=== PATIENT | female | born 1945 | race Caucasian/White ===

== ENCOUNTER 2016-10-25 11:22 | Emergency (ER) | payer MEDICARE ==
[2016-10-25] MEDS ORDERED: SODIUM CHLORIDE 0.9% 1,000 ML IV ONE (12:05)
[2016-10-25 12:45] LABS: Basophils % (A) 0 %; CH 33.3; CHCM 33.3; Eosinophils # (A) 0.1 k/uL (0-0.7); Eosinophils % (A) 3 %; HCT 40.3 % (34.0-46.0); HGB 13.2 gm/dL (11.4-16.0); Luc # (Auto) 0.06; Luc % (Auto) 1; Lymphocytes # (A) 1.4 k/uL (1.0-4.8); Lymphocytes % (A) 27 %; MCH 32.8 pg (25.0-35.0); MCHC 32.7 g/dL (31.0-37.0); MCV 100.4 fL (80.0-100.0); Macrocytosis Slight; Mean Platelet Volume 8.7; Monocytes # (A) 0.3 k/uL (0-1.0); Monocytes % (A) 6 %; Neutrophils # (A) 3.2 k/uL (1.3-7.7); Neutrophils % (A) 63 %; RBC 4.02 m/uL (3.80-5.40); RDW 14.4 % (11.5-15.5); WBC 5.1 k/uL (3.8-10.6); WBC (Perox) 4.73
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
[2016-10-25 13:33] LABS: ALT 38 U/L (9-52); AST 22 U/L (14-36); Alkaline Phosphatase 82 U/L (38-126); Anion Gap 6 mmol/L; Blood Urea Nitrogen 15 mg/dL (7-17); Calcium 8.9 mg/dL (8.4-10.2); Carbon Dioxide 28 mmol/L (22-30); Chloride 105 mmol/L (98-107); Glucose 81 mg/dL (74-99); Non-African American GFR(MDRD) >60 (>60 ml/min/1.73 sqM); Potassium 4.3 mmol/L (3.5-5.1); Sodium 139 mmol/L (137-145); Total Bilirubin 0.4 mg/dL (0.2-1.3); Total Protein 6.2 g/dL (6.3-8.2)
--- NOTE | 2016-10-25 14:02 | US ---
EXAMINATION TYPE: US venous doppler duplex LE DATE OF EXAM: 10/25/2016 1:42 PM COMPARISON: NONE CLINICAL HISTORY: Pain. Went to [employer] 10/11. Four days after, pain in heel began then swelling in bot h legs. No hx of blood clots or on blood thinners SIDE PERFORMED: bilateral TECHNIQUE: The lower extremity deep venous system is examined utilizing real time linear array sonog rach with graded compression, doppler sonography and color-flow sonography. VESSELS IMAGED: External Iliac Vein (EIV) Common Femoral Vein Deep Femoral Vein Greater Saphenous Vein * Femoral Vein Popliteal Vein Small Saphenous Vein * Proximal Calf Veins (* superficial vessels) Right Leg: Negative for DVT, Fluid seen posterior right knee = 3.7 x 2.8 x 1.1 cm Left Leg: Negative for DVT IMPRESSION: 1. THIS EXAMINATION IS NEGATIVE FOR DVT IN BOTH LEGS. 2. 3.7 CM POPLITEAL FOSSA CYST ON THE RIGHT.
[2016-10-25 14:05] VITALS: BP 149/76; PULSE 73; RESP 17; TEMP 97.6
--- NOTE | 2016-10-25 14:37 | XR ---
EXAMINATION TYPE: XR chest 2V DATE OF EXAM: 10/25/2016 COMPARISON: None HISTORY: 71-year-old female dizziness and pain TECHNIQUE: PA and lateral views FINDINGS: Heart is upper limits of normal in size. Aorta and pulmonary vasculature within normal limits. Mild l eft apical pleural parenchymal scarring and some strandy scarring or atelectasis at the left base. No consolidation or pleural effusion. IMPRESSION: Borderline heart size and either some strandy areas of scarring or atelectasis. No acute process seen .
--- NOTE | 2016-10-25 14:38 | XR ---
EXAMINATION TYPE: XR foot complete LT DATE OF EXAM: 10/25/2016 COMPARISON: NONE HISTORY: 71 year-old female left heel pain and swelling TECHNIQUE: 3 views FINDINGS: Incidental Silveira's toe. Small plantar calcaneal spur. No acute fracture, subluxation, or dislocation identified. IMPRESSION: Small plantar calcaneal spur. No acute osseous abnormality seen.
== END 2016-10-25 14:53 | disposition home or self-care (01) ==
LOC: EC 11:22
DX: R60.0 Localized edema (principal); R42 Dizziness and giddiness; F17.200 Nicotine dependence, unspecified, uncomplicated; Z79.82 Long term (current) use of aspirin; Z79.899 Other long term (current) drug therapy; Z88.0 Allergy status to penicillin; Z88.8 Allergy status to other drugs, medicaments and biological substances; Z53.8 Procedure and treatment not carried out for other reasons
CPT/HCPCS: 36415; 71020; 80053; 83880; 85025; 93970; 99284